=== PATIENT | female | born 1975 | race Two or more races ===

== ENCOUNTER 2018-03-06 07:12 | Emergency (ER) | payer OTHER ==
--- NOTE | 2018-03-06 07:39 | Emergency Department Record ---
History of Present Illness - General Chief complaint: Female Urogenital Problem Stated complaint: BLEEDING/DNC IN FEB. Time Seen by Provider: 03/06/18 07:26 Source: Patient Mode of Arrival: Ambulatory Limitations: No limitations - History of Present Illness Initial comments: pt was 8 wks preg and had spon ab and a d&c on feb 08. she had spotting after. she now has started bleeding heavily ,passing clots and having cramps. MD Complaint: Vaginal bleeding Onset/Timin -: Month(s) Radiation: Suprapubic Severity scale (1-10): 10 Quality: Cramping Consistency: Constant Improves with: None Worsens with: None Patient : No Associated Symptoms: Denies other symptoms - Related Data Sexually active: Yes Home Medications Medication Instructions Recorded Confirmed Last Taken Metformin HCl 500 mg PO TID 03/06/18 03/06/18 Unknown Vit,Calc78/Iron/Folic 1 each PO DAILY 03/06/18 03/06/18 Unknown [Prenatabs FA Tablet] Allergies Allergy/AdvReac Type Severity Reaction Status Date / Time No Known Drug Allergies Allergy Verified 03/06/18 07:26 Travel Screening - Travel/Exposure Within Last 30 Days Have you traveled within the last 30 days?: No Review of Systems Reviewed: No additional complaints except as noted below Constitutional: Reports: As per HPI. Denies: Chills, Fever, Malaise, Night sweats, Weakness, Weight change Eyes: Reports: As per HPI. Denies: Eye discharge, Eye pain, Photophobia, Vision change ENT: Reports: As per HPI. Denies: Congestion, Dental pain, Ear pain, Epistaxis , Hearing loss, Throat pain Respiratory: Reports: As per HPI. Denies: Cough, Dyspnea, Hemoptysis, Stridor, Wheezes Cardiovascular: Reports: As per HPI. Denies: Arrhythmia, Chest pain, Dyspnea on exertion, Edema, Murmurs, Orthopnea, Palpitations, Paroxysmal nocturnal dyspnea, Rheumatic Fever, Syncope Endocrine: Reports: As per HPI. Denies: Fatigue, Heat or cold intolerance, Polydipsia, Polyuria Gastrointestinal: Reports: As per HPI. Denies: Abdominal pain, Constipation, Diarrhea, Hematemesis, Hematochezia, Melena, Nausea, Vomiting Genitourinary: Reports: As per HPI. Denies: Abnormal menses, Discharge, Dyspareunia, Dysuria, Frequency, Hematuria, Incontinence, Retention, Urgency Musculoskeletal: Reports: As per HPI. Denies: Arthralgia, Back pain, Gout, Joint swelling, Myalgia, Neck pain Skin: Reports: As per HPI. Denies: Bruising, Change in color, Change in hair/ nails, Lesions, Pruritus, Rash Neurological: Reports: As per HPI. Denies: Abnormal gait, Confusion, Headache, Numbness, Paresthesias, Seizure, Tingling, Tremors, Vertigo, Weakness Psychiatric: Reports: As per HPI. Denies: Anxiety, Auditory hallucinations, Depression, Homicidal thoughts, Suicidal thoughts, Visual hallucinations Hematological/Lymphatic: Reports: As per HPI. Denies: Anemia, Blood Clots, Easy bleeding, Easy bruising, Swollen glands Past Medical History - SOCIAL HISTORY Smoking Status: Never smoker Alcohol Use: None Drug Use: None - RESPIRATORY Hx Respiratory Disorders: No - CARDIOVASCULAR Hx Cardio Disorders: No - NEURO Hx Neuro Disorders: No - GI Hx GI Disorders: No - Hx Genitourinary Disorders: No - ENDOCRINE Hx Endocrine Disorders: No - MUSCULOSKELETAL Hx Musculoskeletal Disorders: No - PSYCH Hx Psych Problems: No - HEMATOLOGY/ONCOLOGY Hx Hematology/Oncology Disorders: No Family Medical History Any Significant Family History?: No Physical Exam - General General Appearance: Alert, Oriented x3, Cooperative, Mild distress - Head Head exam: Normal inspection - Eye Eye exam: Normal appearance, PERRL, EOMI Pupils: Normal accommodation - ENT ENT exam: Normal exam, Mucous membranes moist, Normal external ear exam, Normal orophraynx Ear exam: Normal external inspection. negative: External canal tenderness Nasal Exam: Normal inspection. negative: Discharge, Sinus tenderness Mouth exam: Normal external inspection, Tongue normal Teeth exam: Normal inspection. negative: Dental caries Throat exam: Normal inspection. negative: Tonsillar erythema, Tonsillar exudate - Neck Neck exam: Normal inspection, Full ROM. negative: Tenderness - Respiratory Respiratory exam: Normal lung sounds bilaterally. negative: Respiratory distress - Cardiovascular Cardiovascular Exam: Regular rate, Normal rhythm, Normal heart sounds - GI/Abdominal GI/Abdominal exam: Soft, Normal bowel sounds. negative: Tenderness - Rectal Rectal exam: Deferred - exam: Normal external exam, Vaginal bleeding - Extremities Extremities exam: Normal inspection, Full ROM, Normal capillary refill. negative: Tenderness - Back Back exam: Reports: Normal inspection, Full ROM. Denies: Muscle spasm, Rash noted, Tenderness - Neurological Neurological exam: Alert, CN II-XII intact, Normal gait, Oriented X3 - Psychiatric Psychiatric exam: Normal affect, Normal mood - Skin Skin exam: Dry, Intact, Normal color, Warm Course Vital Signs 03/06/18 07:15 Temperature 98.2 F Pulse Rate 87 Respiratory 18 Rate Blood Pressure 162/107 Pulse Ox 98 - Reevaluation(s) Reevaluation #1: 03/06/18 12:20 pt has retained products and continues to be in significant pain. 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
[2018-03-06 07:52] LABS: BASO % 0.2 % (0-6); EOS % 2.2 % (0-6); GRAN % 56.4 % (47-80); HEMATOCRIT 38.9 % (35.0-47.0); HEMOGLOBIN 13.1 gm/dl (11.6-16.0); LYMPH % 34.5 % (16-45); MEAN CELL VOLUME 87.8 fl (81-97); MEAN CORPUSCULAR HEMOGLOBIN 29.6 pg (27-33); MEAN CORPUSCULAR HGB CONC 33.7 g/dl (32-36); MEAN PLATELET VOLUME 9.8 fl (7.4-10.4); MONO % 6.7 % (0-9); PLATELET COUNT 315 K/uL (130-400); RED BLOOD COUNT 4.43 M/uL (3.80-5.40); RED CELL DISTRIBUTION WIDTH 14.1 % (11.5-14.5); WHITE BLOOD COUNT W/O DIFF 8.3 K/uL (4.2-12.2)
[2018-03-06] MEDS ORDERED: MORPHINE SULFATE 10 MG/ML VIAL IVP ONE ×2 (08:23→09:14)
[2018-03-06] MEDS ORDERED: ONDANSETRON HCL IV 4 MG/2 ML VIAL IVP ONE (08:23)
[2018-03-06] MEDS ORDERED: HYDROMORPHONE HCL 2 MG/ML VIAL IVP ONE ×2 (10:48→11:35)
--- NOTE | 2018-03-07 08:28 | ULTRASOUND REPORT ---
EXAM: PELVIC ULTRASOUND (LESS THAN 14 WEEKS) HISTORY: D&C. TECHNIQUE: Transvaginal and transabdominal sonographic evaluation of the pelvis was performed using gutierres scale imaging with the addition of color flow Doppler and spectral analysis. FINDINGS: The uterus measures 14.1 x 7.7 x 8.1 cm. There is complex heterogeneous echotexture within the endometrium. Findings are consistent with retained products of conception. The right ovary measures 5.2 x 3.1 x 2.1 cm and the left ovary measures 3.2 x 4.5 x 3.2 cm. Normal arterial and venous flow to both ovaries. IMPRESSION: COMPLEX ENDOMETRIUM WITH RETAINED PRODUCTS OF CONCEPTION. GYNECOLOGICAL CONSULTATION IS RECOMMENDED. JOB NUMBER: [id number] MTDD
== END 2018-03-06 12:48 | disposition short-term general hospital (02) ==
LOC: ER 07:12
DX: O03.1 Delayed or excessive hemorrhage following incomplete spontaneous abortion (principal)
CPT/HCPCS: 99285 ×2; 96376; 96374; 96375; 85025; 84702; 84703; 86901; 76817; 76801; J2405; J1170; J2270